=== PATIENT | male | born 1970 | race Two or more races ===

== ENCOUNTER 2019-06-17 14:17 | Emergency (ER) | payer MEDICAID ==
--- NOTE | 2019-06-17 14:56 | EDM.PDOC ---
ED HPI GENERAL MEDICAL PROBLEM - General Chief Complaint: General Stated Complaint: TOOTH ACHE/FELL AND CUT WRIST Time Seen by Provider: 06/17/19 14:56 Source of Information: Reports: Patient, Old Records, RN, RN Notes Reviewed History Limitations: Reports: No Limitations - History of Present Illness INITIAL COMMENTS - FREE TEXT/NARRATIVE: Pt sent to ER from clinic with c/o left sided dental pain and right wrist pain. He reports having had two days history of left upper toothache with pain and swelling to the cheek. Tetanus vaccination is up to date. He also had a seizure two weeks ago and cut right wrist, which now has purulent drainage. He has history epileptic seizures but has not been on seizure medication for 8 to 10 years. He claims he has not had any seizures for the last 5 years until two weeks ago. Denies fever or chills. Duration: Day(s): (12-14), Constant, Getting Worse Location: Reports: Upper Extremity, Right, Other (Dental) Quality: Reports: Ache Severity: Severe Improves with: Reports: None Worsens with: Reports: Eating, Movement (of Rt wrist) Associated Symptoms: Reports: No Other Symptoms Treatments COUNSELING PSYCHOLOGIST: Reports: Acetaminophen Left Upper Oral/Mouth Pain Score (Numeric/FACES): 8 - Related Data Allergies Allergy/AdvReac Type Severity Reaction Status Date / Time latex Allergy Rash Verified 06/17/19 15:03 Home Meds: Home Meds Acetaminophen [Acetaminophen Extra Strength] 1,000 mg PO ASDIRECTED PRN [History] Past Medical History - Past Health History Medical/Surgical History: Denies Medical/Surgical History HEENT History: Reports: Cataract, Glaucoma, Impaired Vision, Other (See Below) ( Dental decay, missing teeth) Other HEENT History: GLAUCOMA RIGHT EYE; CATARACT LEFT EYE; WEARS NO CORRECTIVE LENS Cardiovascular History: Reports: None Respiratory History: Reports: None Gastrointestinal History: Reports: Other (See Below) Other Gastrointestinal History: RIGHT INGUINAL HERNIA Genitourinary History: Reports: None Musculoskeletal History: Reports: Back Pain, Chronic Neurological History: Reports: Seizure, Other (See Below) Other Neuro History: RIGHT LEG NUMBNESS AND TINGLING Psychiatric History: Reports: None Endocrine/Metabolic History: Reports: None Hematologic History: Reports: None Immunologic History: Reports: None Oncologic (Cancer) History: Reports: None Dermatologic History: Reports: None - Infectious Disease History Infectious Disease History: Reports: Chicken Pox - Past Surgical History Head Surgeries/Procedures: Reports: None Cardiovascular Surgical History: Reports: None Respiratory Surgical History: Reports: None GI Surgical History: Reports: Hernia Repair/Other Other GI Surgeries/Procedures: Rt. hernia repair with mess Male Surgical History: Reports: None Endocrine Surgical History: Reports: None Oncologic Surgical History: Reports: None Social & Family History - Family History HEENT: Reports: Impaired Vision, Other (See Below) Other HEENT Family History: FATHER HAD EYE SURGERY UNCERTAIN FOR WHAT CONDITION Cardiac: Reports: None Respiratory: Reports: None GI: Reports: Irritable Bowel Syndrome : Reports: None OBGYN: Reports: None Musculoskeletal: Reports: None Neurological: Reports: None Psychiatric: Reports: None Endocrine/Metabolic: Reports: Diabetes, type II - Tobacco Use Smoking Status *Q: Heavy Tobacco Smoker Tobacco Use Within Last Twelve Months: Cigarettes - Caffeine Use Caffeine Use: Reports: Coffee Other Caffeine Use: COFFEE AND OR SODA DAILY AVERAGE 1 CUP - Living Situation & Occupation Living situation: Reports: with Family ED ROS GENERAL - Review of Systems Review Of Systems: Comprehensive ROS is negative, except as noted in HPI. ED EXAM, GENERAL - Physical Exam Exam: See Below Exam Limited By: No Limitations General Appearance: Alert, No Apparent Distress Ears: Normal External Exam, Hearing Grossly Normal Nose: Normal Inspection, Normal Mucosa, No Blood Throat/Mouth: Normal Lips, Normal Oropharynx, Normal Voice, No Airway Compromise , Other (Extensive chronic dental decay, several missing teeth. Rt maxillary molar w/deep caries and swelling/tenderness of adj. gums, and left face swelling ) Head: Atraumatic, Facial Swelling (Left), Facial Tenderness (Left) Neck: Normal Inspection, Supple, Non-Tender, Full Range of Motion. No: Lymphadenopathy (L), Lymphadenopathy (R) Respiratory/Chest: No Respiratory Distress, Lungs Clear, Normal Breath Sounds, No Accessory Muscle Use, Chest Non-Tender Cardiovascular: Regular Rate, Rhythm Extremities: Normal Capillary Refill, Other (Right volar wrist with an infected abrasion or laceration with localized erythema, and soft tissue swelling with small amount of purulent drainage.) Neurological: Alert, Oriented, CN II-XII Intact, Normal Cognition, Normal Gait, No Motor/Sensory Deficits Psychiatric: Normal Mood Skin Exam: Warm, Dry Course - Vital Signs Last Recorded V/S: Last Vital Signs Temp 98.6 F 02/07/20 14:55 Pulse 96 06/17/19 14:55 Resp 16 06/17/19 14:55 BP 128/96 H 06/17/19 14:55 Pulse Ox 98 06/17/19 14:55 - Orders/Labs/Meds Orders: Active Orders 24 hr Category Date Time Status Peripheral IV Care [RC] . DIRECTED Care 06/17/19 15:01 Active Sodium Chloride 0.9% [Saline Flush] Med 06/17/19 15:01 Active 10 ml FLUSH ASDIRECTED PRN Peripheral IV Insertion Adult [OM.PC] Stat Oth 06/17/19 15:00 Ordered Medication Orders Sodium Chloride (Saline Flush) 10 ml FLUSH ASDIRECTED PRN PRN Reason: Keep Vein Open Last Admin: 06/17/19 15:17 Dose: 10 ml Labs: Laboratory Tests 06/17/19 06/17/19 06/17/19 Range/Units 15:10 15:10 15:10 WBC 12.5 H (5.0-10.0) 10^3/uL RBC 4.67 (4.6-6.2) 10^6/uL Hgb 14.1 (14.0-18.0) g/dL Hct 42.0 (40.0-54.0) % MCV 89.9 (80-100) fL MCH 30.2 (27.0-34.0) pg MCHC 33.6 (33.0-35.0) g/dL Plt Count 320 (150-450) 10^3/uL Neut % (Auto) 69.0 (42.2-75.2) % Lymph % (Auto) 20.0 L (20.5-50.1) % Hardy % (Auto) 8.2 H (2-8) % Eos % (Auto) 2.5 (1.0-3.0) % Baso % (Auto) 0.3 (0.0-1.0) % Sodium 135 (135-145) mmol/L Potassium 4.0 (3.6-5.0) mmol/L Chloride 106 (101-111) mmol/L Carbon Dioxide 22.0 (21.0-31.0) mmol/L Anion Gap 11.0 BUN 12 (7-18) mg/dL Creatinine 1.0 (0.6-1.3) mg/dL Est Cr Clr Drug Dosing 101.31 mL/min Estimated GFR (MDRD) > 60 BUN/Creatinine Ratio 12.00 Glucose 97 (74-105) mg/dL Calcium 8.9 (8.4-10.2) mg/dl Total Bilirubin 0.7 (0.2-1.0) mg/dL AST 20 (10-42) IU/L ALT 20 (10-60) IU/L Alkaline Phosphatase 68 (42-121) IU/L C-Reactive Protein 2.0 H (0.0-1.3) mg/dL Total Protein 7.3 (6.7-8.2) g/dl Albumin 3.8 (3.2-5.5) g/dl Globulin 3.5 Albumin/Globulin Ratio 1.09 Meds: Medications Generic Name Dose Route Start Last Admin Trade Name Freq PRN Reason Stop Dose Admin Sodium Chloride 10 ml 06/17/19 15:01 06/17/19 15:17 Saline Flush FLUSH 10 ml ASDIRECTED PRN Administration Keep Vein Open Discontinued Medications Generic Name Dose Route Start Last Admin Trade Name Freq PRN Reason Stop Dose Admin Clindamycin Phosphate 900 mg/ 106 mls @ 200 mls/hr 06/17/19 15:02 06/17/19 15 :17 Sodium Chloride IV 06/17/19 15:33 200 mls/hr ONETIME ONE Administration Ketorolac Tromethamine 30 mg 06/17/19 15:01 06/17/19 15:17 Toradol IVPUSH 06/17/19 15:02 30 mg ONETIME ONE Administration Lidocaine HCl 15 ml 06/17/19 15:03 06/17/19 15:18 Xylocaine 2% Viscous PO 06/17/19 15:04 15 ml ONETIME ONE Administration - Radiology Interpretation Free Text/Narrative:: [facility] - [facility] Final Radiology Report Call: [phone] assistance Online chat: [email or web address] Name: DAILY ENCARNACION Age: 48Years M Date: 06/17/2019 SSN: -- : [id number] Study: XR WRIST COMPLETE MIN OF 3 VIEWS RIGHT Requesting Physician: HEATH TUBBS Images: 3 Addl Studies: Provided Clinical History: drake wrist pain, injury Contrast: Contrast Medium: Contrast Amount: Contrast Method: CONFIDENTIALITY STATEMENT This report is intended only for use by the referring physician, and only in accordance with law. If you received this in error, call [phone]. Page 1 of 1 PROCEDURE INFORMATION: Exam: XR Right Wrist Exam date and time: 06/17/2019 3:26 PM Age: 48 years old Clinical indication: Pain; Wrist; Right; Additional info: Marquez wrist pain, injury TECHNIQUE: Imaging protocol: XR Right wrist. Views: 3 or more views. COMPARISON: No relevant prior studies available. FINDINGS: Bones/joints: There may be an old healed fracture of the proximal right 5th metacarpal. There is no evidence of acute fracture. The alignment of the joints is anatomic and the joint spaces are maintained. Soft tissues: No soft tissue swelling is identified. IMPRESSION: No acute abnormality. Thank you for allowing us to participate in the care of your patient. Dictated and Authenticated by: Kedar Coffey MD 06/17/2019 3:33 PM Central Time ([place] & [place]) Departure - Departure Time of Disposition: 16:16 Disposition: Home, Self-Care 01 Condition: Good Clinical Impression: Dental abscess, Infected laceration Laceration of right wrist Qualifiers: Encounter type: initial encounter Qualified Code(s): S61.511A - Laceration without foreign body of right wrist, initial encounter - Discharge Information *PRESCRIPTION DRUG MONITORING PROGRAM REVIEWED*: Not Applicable *COPY OF PRESCRIPTION DRUG MONITORING REPORT IN PATIENT STARR: Not Applicable Instructions: Dental Abscess, Wound Infection, [id number] Forms: ED Department Discharge Additional Instructions: Rx: Clindamycin 300mg Rx: Naprosyn 500mg Rx: Viscous Lidocaine 2% Rx: Bactroban Ointment 2% Follow up with dentist at first available appointment. Follow up with a primary doctor at [facility] next week for recheck and referral to neurologist for seizure evaluation. Sepsis Event Note - Focused Exam Vital Signs: Vital Signs Temp Pulse Resp BP Pulse Ox 06/17/19 14:55 98.6 F 96 16 128/96 H 98 Date Exam was Performed: 06/17/19 Time Exam was Performed: 16:15 - My Orders Last 24 Hours: My Active Orders 06/17/19 15:00 Peripheral IV Insertion Adult [OM.PC] Stat 06/17/19 15:01 Peripheral IV Care [RC] . DIRECTED Sodium Chloride 0.9% [Saline Flush] 10 ml FLUSH ASDIRECTED PRN - Assessment/Plan Last 24 Hours: My Active Orders 06/17/19 15:00 Peripheral IV Insertion Adult [OM.PC] Stat 06/17/19 15:01 Peripheral IV Care [RC] . DIRECTED Sodium Chloride 0.9% [Saline Flush] 10 ml FLUSH ASDIRECTED PRN
[2019-06-17] MEDS ORDERED: Sodium Chloride 0.9% 10 ML Syringe FLUSH PRN (15:01)
[2019-06-17] MEDS ORDERED: Ketorolac 30 MG/ML SDV IVPUSH ONE (15:01)
[2019-06-17] MEDS ORDERED: Clindamycin Phosphate 900 MG in Sodium Chloride 0.9% 100 ML IV ONE (15:02)
[2019-06-17 15:03] VITALS: BP 128/96; PULSE 96
[2019-06-17] MEDS ORDERED: Lidocaine 2% Viscous Solution 15 ML Cup PO ONE (15:03)
[2019-06-17 15:37] LABS: CHLORIDE,CL 106 mmol/L (101-111); SODIUM,NA 135 mmol/L (135-145)
== END 2019-06-17 16:25 | disposition home or self-care (01) ==
LOC: DL.ED 14:17
DX: S61.511A Laceration without foreign body of right wrist, initial encounter (principal); K04.7 Periapical abscess without sinus; F17.210 Nicotine dependence, cigarettes, uncomplicated; Z91.040 Latex allergy status; W26.9XXA Contact with unspecified sharp object(s), initial encounter
CPT/HCPCS: 36415; 73110; 80053; 85025; 86140; 96365; 96375; 99283; A9270; J1885; J3490; J7050

== ENCOUNTER 2019-06-25 12:27 | Emergency (ER) | payer MEDICAID ==
[2019-06-25 12:44] VITALS: BP 124/67; PULSE 92
--- NOTE | 2019-06-25 13:10 | CR ---
EXAMINATION: Fingers Thumb Lt FA SEX: Male AGE: 48 years CLINICAL HISTORY: 48-year-old male with swollen left thumb. No known trauma. (possible infection) INTERPRETATION: 1. Homogeneous normal bone mineral density. No foreign bodies or inflammatory periostitis. 2. Soft tissue swelling. 3. No sign of left thumb fracture or dislocation. CONCLUSION: Soft tissue swelling. Otherwise negative plain film exam left thumb.
[2019-06-25 13:43] LABS: CHLORIDE,CL 105 mmol/L (101-111); SODIUM,NA 136 mmol/L (135-145)
--- NOTE | 2019-06-25 14:18 | EDM.PDOC ---
Scribed by Anastasia Amaya 06/25/19 1418 for Clementina Bermudez NP ED HPI GENERAL MEDICAL PROBLEM - General Chief Complaint: Skin Complaint Stated Complaint: FELL INTO MIRROR/FINGER IS SWOLLEN Time Seen by Provider: 06/25/19 13:15 Source of Information: Reports: Patient, RN, RN Notes Reviewed History Limitations: Reports: No Limitations - History of Present Illness INITIAL COMMENTS - FREE TEXT/NARRATIVE: A 48-year-old gentleman who presents with left thumb pain. He reports falling on a mirror more than a week ago and had a laceration on his right wrist, which was treated in the clinic. HE states one week ago his left thumb started hurting and got swollen. He denies any further injuries or fall. He denies any fevers, chills, shortness of breath, chest pain, palpitations or dizziness at this time. Left swollen thumb is not draining. He has not tried anything for pain. Onset: Gradual Duration: Getting Worse Location: Reports: Upper Extremity, Left Quality: Reports: Ache Severity: Moderate Improves with: Reports: None Worsens with: Reports: None Associated Symptoms: Reports: No Other Symptoms - Related Data Allergies Allergy/AdvReac Type Severity Reaction Status Date / Time latex Allergy Rash Verified 06/17/19 15:03 Home Meds: Home Meds Acetaminophen [Acetaminophen Extra Strength] 1,000 mg PO ASDIRECTED PRN [History] Past Medical History - Past Health History Medical/Surgical History: Denies Medical/Surgical History HEENT History: Reports: Cataract, Glaucoma, Impaired Vision, Other (See Below) ( Dental decay, missing teeth) Other HEENT History: GLAUCOMA RIGHT EYE; CATARACT LEFT EYE; WEARS NO CORRECTIVE LENS Cardiovascular History: Reports: None Respiratory History: Reports: None Gastrointestinal History: Reports: Other (See Below) Other Gastrointestinal History: RIGHT INGUINAL HERNIA Genitourinary History: Reports: None Musculoskeletal History: Reports: Back Pain, Chronic Neurological History: Reports: Seizure, Other (See Below) Other Neuro History: RIGHT LEG NUMBNESS AND TINGLING Psychiatric History: Reports: None Endocrine/Metabolic History: Reports: None Hematologic History: Reports: None Immunologic History: Reports: None Oncologic (Cancer) History: Reports: None Dermatologic History: Reports: None - Infectious Disease History Infectious Disease History: Reports: Chicken Pox - Past Surgical History Head Surgeries/Procedures: Reports: None Cardiovascular Surgical History: Reports: None Respiratory Surgical History: Reports: None GI Surgical History: Reports: Hernia Repair/Other Other GI Surgeries/Procedures: Rt. hernia repair with mess Male Surgical History: Reports: None Endocrine Surgical History: Reports: None Oncologic Surgical History: Reports: None Social & Family History - Family History HEENT: Reports: Impaired Vision, Other (See Below) Other HEENT Family History: FATHER HAD EYE SURGERY UNCERTAIN FOR WHAT CONDITION Cardiac: Reports: None Respiratory: Reports: None GI: Reports: Irritable Bowel Syndrome : Reports: None OBGYN: Reports: None Musculoskeletal: Reports: None Neurological: Reports: None Psychiatric: Reports: None Endocrine/Metabolic: Reports: Diabetes, type II - Caffeine Use Caffeine Use: Reports: Coffee Other Caffeine Use: COFFEE AND OR SODA DAILY AVERAGE 1 CUP - Living Situation & Occupation Living situation: Reports: with Family ED ROS GENERAL - Review of Systems Review Of Systems: Comprehensive ROS is negative, except as noted in HPI. ED EXAM, SKIN/RASH Exam: See Below Exam Limited By: No Limitations General Appearance: Alert, WD/WN, No Apparent Distress Head: Atraumatic, Normocephalic Respiratory/Chest: No Respiratory Distress, Lungs Clear, Normal Breath Sounds, No Accessory Muscle Use, Chest Non-Tender Cardiovascular: Normal Peripheral Pulses, Regular Rate, Rhythm, No Edema, No Gallop, No JVD, No Murmur, No Rub Peripheral Pulses: 3+: Radial (L) Extremities: Normal Capillary Refill, Other (moderately swollen left thumb with mild erythema and tenderness to palpation. No drainage noted. ) Psychiatric: Normal Affect, Normal Mood Skin: Warm, Dry Location, Skin: Upper Extremity, Left Course - Vital Signs Last Recorded V/S: Last Vital Signs Temp 97.3 F 06/25/19 12:40 Pulse 92 06/25/19 12:40 Resp 16 06/25/19 12:40 BP 124/67 06/25/19 12:40 Pulse Ox 99 06/25/19 12:40 - Orders/Labs/Meds Orders: Active Orders 24 hr Category Date Time Status CULTURE BLOOD [BC] Stat Lab 06/25/19 13:12 Received Labs: Laboratory Tests 06/25/19 06/25/19 06/25/19 Range/Units 13:12 13:12 13:12 WBC 10.1 H (5.0-10.0) 10^3/uL RBC 4.78 (4.6-6.2) 10^6/uL Hgb 14.6 (14.0-18.0) g/dL Hct 42.4 (40.0-54.0) % MCV 88.7 (80-100) fL MCH 30.5 (27.0-34.0) pg MCHC 34.4 (33.0-35.0) g/dL Plt Count 372 (150-450) 10^3/uL Neut % (Auto) 73.2 (42.2-75.2) % Lymph % (Auto) 16.6 L (20.5-50.1) % Banner % (Auto) 7.3 (2-8) % Eos % (Auto) 2.3 (1.0-3.0) % Baso % (Auto) 0.6 (0.0-1.0) % Sodium 136 (135-145) mmol/L Potassium 4.0 (3.6-5.0) mmol/L Chloride 105 (101-111) mmol/L Carbon Dioxide 23.0 (21.0-31.0) mmol/L Anion Gap 12.0 BUN 16 (7-18) mg/dL Creatinine 0.9 (0.6-1.3) mg/dL Est Cr Clr Drug Dosing TNP Estimated GFR (MDRD) > 60 BUN/Creatinine Ratio 17.77 Glucose 100 (74-105) mg/dL Lactic Acid 1.3 (0.5-2.0) mmol/L Calcium 9.0 (8.4-10.2) mg/dl Total Bilirubin 0.3 (0.2-1.0) mg/dL AST 27 (10-42) IU/L ALT 24 (10-60) IU/L Alkaline Phosphatase 68 (42-121) IU/L Total Protein 7.6 (6.7-8.2) g/dl Albumin 3.9 (3.2-5.5) g/dl Globulin 3.7 Albumin/Globulin Ratio 1.05 - Radiology Interpretation Free Text/Narrative:: Left hand x-ray: Soft tissue swelling. Otherwise negative plain film exam left thumb. See rad report. - Re-Assessments/Exams Free Text/Narrative Re-Assessment/Exam: 06/25/19 14:15 Reviewed lab results with patient. RX for Clindamycin sent home with side effects discussed with patient. Elevate thumb when lying down. Follow up in PCP in clinic in 4 days. Departure - Departure Time of Disposition: 14:12 Disposition: Home, Self-Care 01 Condition: Fair Clinical Impression: Cellulitis of left thumb - Discharge Information Instructions: Cellulitis, Adult, [id number] Forms: ED Department Discharge Additional Instructions: RX: Clindamycin 450mg 3 times a day, administer as prescribed. Follow up with PCP in 3 days. Sepsis Event Note - Evaluation Sepsis Screening Result: No Definite Risk - Focused Exam Vital Signs: Vital Signs Temp Pulse Resp BP Pulse Ox 06/25/19 12:40 97.3 F 92 16 124/67 99 Date Exam was Performed: 06/25/19 Time Exam was Performed: 14:18 - My Orders Last 24 Hours: My Active Orders 06/25/19 13:12 CULTURE BLOOD [BC] Stat - Assessment/Plan Last 24 Hours: My Active Orders 06/25/19 13:12 CULTURE BLOOD [BC] Stat I have read and agree with the documentation that has been completed regarding this visit. By signing this record, I attest that the documentation was completed in my physical presence and is an accurate record of the encounter.
== END 2019-06-25 14:20 | disposition home or self-care (01) ==
LOC: DL.ED 12:27
DX: L03.012 Cellulitis of left finger (principal); Z91.040 Latex allergy status
CPT/HCPCS: 36415; 73140-FA; 80053; 83605; 85025; 87040; 99283-25

== ENCOUNTER 2019-06-26 21:15 | Emergency (ER) | payer MEDICAID ==
[2019-06-26] MEDS ORDERED: Ibuprofen 600 MG Tab PO ONE ×2 (21:16→23:11)
[2019-06-26 23:19] VITALS: BP 159/95; PULSE 80
[2019-06-26 23:46] LABS: CHLORIDE,CL 106 mmol/L (101-111); SODIUM,NA 136 mmol/L (135-145)
[2019-06-27] MEDS ORDERED: Lidocaine 1% 30 ML SDV INJECT ONE (00:15)
[2019-06-27] MEDS ORDERED: Bacitracin Oint 1 GM U/D Packet TOP ONE (00:41)
[2019-06-27] MEDS ORDERED: Acetaminophen/oxyCODONE 325-5 MG Tab PO ONE (00:41)
[2019-06-27] MEDS ORDERED: cefTRIAXone 1 GM, Lidocaine 1% 2.1 ML IM ONE ×2 (00:41)
[2019-06-27] MEDS ORDERED: Ibuprofen 600 MG Tab ONE (01:40)
--- NOTE | 2019-06-27 01:49 | EDM.PDOC ---
ED HPI GENERAL MEDICAL PROBLEM - General Chief Complaint: Skin Complaint Stated Complaint: AMB Time Seen by Provider: 06/26/19 23:15 Source of Information: Reports: Patient History Limitations: Reports: No Limitations - History of Present Illness INITIAL COMMENTS - FREE TEXT/NARRATIVE: ED via [facility] with c/o pain to left thumb radiating up arm. Patient seen for same yesterday. has not taken any tylenol or ibuprofen. 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 Initial injury one week ago, stated was painting and ladder fell against mirror, No fever or chills No wound or drainage to thumb Left Finger-Thumb Pain Score (Numeric/FACES): 10 - Related Data Allergies Allergy/AdvReac Type Severity Reaction Status Date / Time latex Allergy Rash Verified 06/26/19 23:22 Home Meds: Home Meds Acetaminophen [Acetaminophen Extra Strength] 1,000 mg PO ASDIRECTED PRN [History] Past Medical History - Past Health History Medical/Surgical History: Denies Medical/Surgical History HEENT History: Reports: Cataract, Glaucoma, Impaired Vision, Other (See Below) Other HEENT History: GLAUCOMA RIGHT EYE; CATARACT LEFT EYE; WEARS NO CORRECTIVE LENS Cardiovascular History: Reports: None Respiratory History: Reports: None Gastrointestinal History: Reports: Other (See Below) Other Gastrointestinal History: RIGHT INGUINAL HERNIA Genitourinary History: Reports: None Musculoskeletal History: Reports: Back Pain, Chronic Neurological History: Reports: Seizure, Other (See Below) Other Neuro History: RIGHT LEG NUMBNESS AND TINGLING Psychiatric History: Reports: None Endocrine/Metabolic History: Reports: None Hematologic History: Reports: None Immunologic History: Reports: None Oncologic (Cancer) History: Reports: None Dermatologic History: Reports: None - Infectious Disease History Infectious Disease History: Reports: Chicken Pox - Past Surgical History Head Surgeries/Procedures: Reports: None Cardiovascular Surgical History: Reports: None Respiratory Surgical History: Reports: None GI Surgical History: Reports: Hernia Repair/Other Other GI Surgeries/Procedures: Rt. hernia repair with mess Male Surgical History: Reports: None Endocrine Surgical History: Reports: None Oncologic Surgical History: Reports: None Social & Family History - Family History HEENT: Reports: Impaired Vision, Other (See Below) Other HEENT Family History: FATHER HAD EYE SURGERY UNCERTAIN FOR WHAT CONDITION Cardiac: Reports: None Respiratory: Reports: None GI: Reports: Irritable Bowel Syndrome : Reports: None OBGYN: Reports: None Musculoskeletal: Reports: None Neurological: Reports: None Psychiatric: Reports: None Endocrine/Metabolic: Reports: Diabetes, type II - Tobacco Use Smoking Status *Q: Current Every Day Smoker Years of Tobacco use: 32 Packs/Tins Daily: 0.2 - Caffeine Use Caffeine Use: Reports: Energy Drinks Other Caffeine Use: COFFEE AND OR SODA DAILY AVERAGE 1 CUP - Recreational Drug Use Recreational Drug Use: No - Living Situation & Occupation Living situation: Reports: with Family ED ROS GENERAL - Review of Systems Review Of Systems: Comprehensive ROS is negative, except as noted in HPI. ED EXAM, SKIN/RASH Exam: See Below General Appearance: Alert, Moderate Distress, Thin Eye Exam: Bilateral Eye: EOMI Ears: Normal External Exam, Hearing Grossly Normal Nose: Normal Inspection Throat/Mouth: Normal Inspection Head: Atraumatic, Normocephalic Neck: Normal Inspection, Full Range of Motion Respiratory/Chest: No Respiratory Distress, Lungs Clear, Normal Breath Sounds Cardiovascular: Normal Peripheral Pulses, Regular Rate, Rhythm Back Exam: Full Range of Motion Extremities: Joint Swelling (left distal thumb) Neurological: Alert, Oriented, Normal Cognition Psychiatric: Anxious Skin: Warm, Dry, Intact, Erythema Location, Skin: Upper Extremity, Left (thumb dip to tip swollen erythema, no definite increased warmth to area, fulll ROM. Well calloused pad no definite blister formation, Punctate rough loose 1mm flap mid pad. ) ED SKIN PROCEDURES - I&D Skin Prep: Chlorhexidine (Hibiciens), Providone-Iodine (Betadine) Local Anesthesia: Lidocaine: 1% Plain Local Anesthetic Volume: 1cc Area Incised With: 11 Blade Drainage: No Drainage Sterile Dressinx4(s) (bacitracin) Complications: No Progress/Comments: poor toleration. Uncooperative with procedure. Course - Vital Signs Last Recorded V/S: Last Vital Signs Temp 97.8 F 06/26/19 23:12 Pulse 80 06/26/19 23:12 Resp 16 06/26/19 23:12 BP 159/95 H 06/26/19 23:12 Pulse Ox 98 06/26/19 23:12 - Orders/Labs/Meds Orders: Active Orders 24 hr Category Date Time Status CULTURE WOUND [RM] Stat Lab 06/27/19 01:41 Received Labs: Laboratory Tests 06/26/19 06/26/19 Range/Units 23:21 23:21 WBC 15.7 H (5.0-10.0) 10^3/uL RBC 4.48 L (4.6-6.2) 10^6/uL Hgb 13.8 L (14.0-18.0) g/dL Hct 40.1 (40.0-54.0) % MCV 89.5 (80-100) fL MCH 30.8 (27.0-34.0) pg MCHC 34.4 (33.0-35.0) g/dL Plt Count 375 (150-450) 10^3/uL Neut % (Auto) 71.9 (42.2-75.2) % Lymph % (Auto) 17.3 L (20.5-50.1) % [place] % (Auto) 8.4 H (2-8) % Eos % (Auto) 2.1 (1.0-3.0) % Baso % (Auto) 0.3 (0.0-1.0) % Sodium 136 (135-145) mmol/L Potassium 4.0 (3.6-5.0) mmol/L Chloride 106 (101-111) mmol/L Carbon Dioxide 22.0 (21.0-31.0) mmol/L Anion Gap 12.0 BUN 28 H (7-18) mg/dL Creatinine 0.9 (0.6-1.3) mg/dL Est Cr Clr Drug Dosing 111.33 mL/min Estimated GFR (MDRD) > 60 BUN/Creatinine Ratio 31.11 Glucose 106 H (74-105) mg/dL Calcium 8.9 (8.4-10.2) mg/dl Total Bilirubin 0.4 (0.2-1.0) mg/dL AST 19 (10-42) IU/L ALT 21 (10-60) IU/L Alkaline Phosphatase 63 (42-121) IU/L Total Protein 7.2 (6.7-8.2) g/dl Albumin 3.7 (3.2-5.5) g/dl Globulin 3.5 Albumin/Globulin Ratio 1.06 Meds: Medications Discontinued Medications Generic Name Dose Route Start Last Admin Trade Name Freq PRN Reason Stop Dose Admin Bacitracin 1 dose 06/27/19 00:41 06/27/19 00:47 Bacitracin Oint 1 Gm TOP 06/27/19 00:42 1 dose ONETIME ONE Administration Ceftriaxone Sodium 1 gm/ 0 gm 06/27/19 00:41 06/27/19 00:48 Lidocaine HCl 2.1 ml IM 06/27/19 00:42 1 inj ONETIME ONE Administration Ibuprofen 600 mg 06/26/19 23:11 06/26/19 23:26 Motrin PO 06/26/19 23:12 600 mg ONETIME ONE Administration Ibuprofen Confirm 06/27/19 01:40 Motrin Administered 06/27/19 01:41 Dose 1,200 mg .ROUTE .STK-MED ONE Lidocaine HCl 30 ml 06/27/19 00:15 06/27/19 00:49 Xylocaine-Mpf 1% INJECT 06/27/19 00:16 30 ml ONETIME ONE Administration Oxycodone/Acetaminophen 1 tab 06/27/19 00:41 06/27/19 00:47 Percocet 325-5 Mg PO 06/27/19 00:42 1 tab ONETIME ONE Administration - Radiology Interpretation Free Text/Narrative:: xray right thumb, No FB visualized, No sign of oseteomylitis reported, See report - Re-Assessments/Exams Free Text/Narrative Re-Assessment/Exam: 06/27/19 05:45 Instructed patient to soak thumb, continue antibiotic, follow uwith primary care in am. Use tylenol and ibuprofen for pain control. Departure - Departure Time of Disposition: 01:45 Disposition: Home, Self-Care 01 Condition: Good Clinical Impression: Infected superficial injury of thumb - Discharge Information Instructions: Fingertip Infection Referrals: PCP,None [Primary Care Provider] - Forms: ED Department Discharge Additional Instructions: soak thumb warm soapy water three times daily alternate tylenol 650mg and ibuprofen 600mg every 4 hours as needed for discomfort clinic follow up in am continue clindamycin elevate extremity Sepsis Event Note - Evaluation Sepsis Screening Result: No Definite Risk - Focused Exam Vital Signs: Vital Signs Temp Pulse Resp BP Pulse Ox 06/26/19 23:12 97.8 F 80 16 159/95 H 98 Date Exam was Performed: 06/27/19 Time Exam was Performed: 05:47 - My Orders Last 24 Hours: My Active Orders 06/27/19 01:41 CULTURE WOUND [RM] Stat - Assessment/Plan Last 24 Hours: My Active Orders 06/27/19 01:41 CULTURE WOUND [RM] Stat
== END 2019-06-27 01:44 | disposition home or self-care (01) ==
LOC: DL.ED 21:15
DX: S60.932A Unspecified superficial injury of left thumb, initial encounter (principal); L02.512 Cutaneous abscess of left hand; Z91.040 Latex allergy status; F17.210 Nicotine dependence, cigarettes, uncomplicated; W20.8XXA Other cause of strike by thrown, projected or falling object, initial encounter
CPT/HCPCS: 10060; 36415; 73140; 80053; 85025; 87070; 96372; 99284; A9270; J0696; J2001

== ENCOUNTER 2019-06-29 16:53 | Emergency (ER) | payer MEDICAID ==
[2019-06-29 17:08] VITALS: BP 122/86; PULSE 100
--- NOTE | 2019-06-29 17:17 | EDM.PDOC ---
<Corona Orona - Last Filed: 06/29/19 17:31> ED HPI GENERAL MEDICAL PROBLEM - General Chief Complaint: Upper Extremity Injury/Pain Stated Complaint: CLINIC REF OVER TO DRAIN THUMB Time Seen by Provider: 06/29/19 17:10 Source of Information: Reports: Patient, RN, RN Notes Reviewed History Limitations: Reports: No Limitations - History of Present Illness INITIAL COMMENTS - FREE TEXT/NARRATIVE: Patient states was painting on a ladder and the ladder fell into a mirror and cut his right wrist and left thumb and got glass into his left thumb 5 days ago. He was in on the Jun 26 and got an X-ray the other day did not indicate any foreign object in wrist or thumb. Left thumb is swollen and red and extremely painful to the touch. He cannot bend his thumb due to the swelling. Started on clindamycin and has been taking it as prescribed. He was at the clinic today and they sent him to the ER because he stated they did not have the proper materials to perform the I&D on his thumb. Patient is in mild distress but denies headache, fever/chills. Duration: Getting Worse Location: Reports: Upper Extremity, Left Quality: Reports: Ache, Throbbing Severity: Mild Improves with: Reports: None Worsens with: Reports: None Associated Symptoms: Reports: No Other Symptoms Left Finger-Thumb Pain Score (Numeric/FACES): 8 - Related Data Allergies Allergy/AdvReac Type Severity Reaction Status Date / Time latex Allergy Rash Verified 06/29/19 16:59 Home Meds: Home Meds Acetaminophen [Acetaminophen Extra Strength] 1,000 mg PO ASDIRECTED PRN [History] Clindamycin HCl 150 mg PO TID 06/29/19 [History] Past Medical History - Past Health History Medical/Surgical History: Denies Medical/Surgical History HEENT History: Reports: Cataract, Glaucoma, Impaired Vision, Other (See Below) Other HEENT History: GLAUCOMA RIGHT EYE; CATARACT LEFT EYE; WEARS NO CORRECTIVE LENS Cardiovascular History: Reports: None Respiratory History: Reports: None Gastrointestinal History: Reports: Other (See Below) Other Gastrointestinal History: RIGHT INGUINAL HERNIA Genitourinary History: Reports: None Musculoskeletal History: Reports: Back Pain, Chronic Neurological History: Reports: Seizure, Other (See Below) Other Neuro History: RIGHT LEG NUMBNESS AND TINGLING Psychiatric History: Reports: None Endocrine/Metabolic History: Reports: None Hematologic History: Reports: None Immunologic History: Reports: None Oncologic (Cancer) History: Reports: None Dermatologic History: Reports: None - Infectious Disease History Infectious Disease History: Reports: Chicken Pox - Past Surgical History Head Surgeries/Procedures: Reports: None Cardiovascular Surgical History: Reports: None Respiratory Surgical History: Reports: None GI Surgical History: Reports: Hernia Repair/Other Other GI Surgeries/Procedures: Rt. hernia repair with mess Male Surgical History: Reports: None Endocrine Surgical History: Reports: None Oncologic Surgical History: Reports: None Social & Family History - Family History HEENT: Reports: Impaired Vision, Other (See Below) Other HEENT Family History: FATHER HAD EYE SURGERY UNCERTAIN FOR WHAT CONDITION Cardiac: Reports: None Respiratory: Reports: None GI: Reports: Irritable Bowel Syndrome : Reports: None OBGYN: Reports: None Musculoskeletal: Reports: None Neurological: Reports: None Psychiatric: Reports: None Endocrine/Metabolic: Reports: Diabetes, type II - Caffeine Use Caffeine Use: Reports: Energy Drinks Other Caffeine Use: COFFEE AND OR SODA DAILY AVERAGE 1 CUP - Living Situation & Occupation Living situation: Reports: with Family Review of Systems - Review of Systems Review Of Systems: Comprehensive ROS is negative, except as noted in HPI. ED EXAM, GENERAL - Physical Exam Exam: See Below Exam Limited By: No Limitations General Appearance: Alert, WD/WN, Mild Distress Respiratory/Chest: No Respiratory Distress, Lungs Clear, Normal Breath Sounds, No Accessory Muscle Use, Chest Non-Tender Cardiovascular: Normal Peripheral Pulses, Regular Rate, Rhythm, No Edema, No Gallop, No JVD, No Murmur, No Rub Extremities: Normal Inspection, Normal Range of Motion, Non-Tender, Normal Capillary Refill, No Pedal Edema Skin Exam: Warm, Intact, Erythema (left thumb), Increased Warmth (left thumb), Other (left thumb is extremely swollen with increased warmth and erythema.) Course - Vital Signs Last Recorded V/S: Last Vital Signs Temp 36.4 C 06/29/19 17:04 Pulse 100 06/29/19 17:04 Resp 16 06/29/19 17:04 BP 122/86 06/29/19 17:04 Pulse Ox 100 06/29/19 17:04 - Orders/Labs/Meds Orders: Active Orders 24 hr Category Date Time Status CBC WITH AUTO DIFF [HEME] Urgent Lab 06/29/19 17:28 Ordered COMPREHENSIVE METABOLIC PN,CMP [CHEM] Urgent Lab 06/29/19 17:28 Ordered CULTURE BLOOD [BC] Stat Lab 06/29/19 17:28 Ordered CULTURE BLOOD [BC] Stat Lab 06/29/19 17:28 Ordered LACTIC ACID [CHEM] Stat Lab 06/29/19 17:28 Ordered Piperacillin/Tazobactam [Zosyn] 3.375 gm Med 06/29/19 17:50 Ordered Sodium Chloride 0.9% [Normal Saline] 100 ml IV ONETIME Blood Culture x2 Reflex Set [OM.PC] Stat Oth 06/29/19 17:28 Ordered Medication Orders Piperacillin Sod/Tazobactam (Sod 3.375 gm/ Sodium Chloride) 100 mls @ 200 mls/ hr IV ONETIME ONE Stop: 06/29/19 18:19 Meds: Medications Generic Name Dose Route Start Last Admin Trade Name Freq PRN Reason Stop Dose Admin Piperacillin Sod/Tazobactam 100 mls @ 200 mls/hr 06/29/19 17:50 Sod 3.375 gm/ Sodium Chloride IV 06/29/19 18:19 ONETIME ONE Departure - Departure Disposition: DC/Tfer to [facility] 02 Clinical Impression: Injury of thumb, left, superficial, infected Qualifiers: Encounter type: subsequent encounter Qualified Code(s): S60.932D - Unspecified superficial injury of left thumb, subsequent encounter; L08.9 - Local infection of the skin and subcutaneous tissue, unspecified - Discharge Information Forms: Interfacility Transfer EMTALA Care Plan Goals: Discussed the examination results with Dr. Lee ([facility]). Dr. Lee accepted the patient for continued evaluation and further management. IV Zosyn was started prior to transport. The patient will be transported by [facility]. Sepsis Event Note - Evaluation Sepsis Screening Result: No Definite Risk - Focused Exam Vital Signs: Vital Signs Temp Pulse Resp BP Pulse Ox 06/29/19 17:04 36.4 C 100 16 122/86 100 Date Exam was Performed: 06/29/19 Time Exam was Performed: 17:31 - My Orders Last 24 Hours: My Active Orders 06/29/19 17:28 CBC WITH AUTO DIFF [HEME] Urgent COMPREHENSIVE METABOLIC PN,CMP [CHEM] Urgent CULTURE BLOOD [BC] Stat CULTURE BLOOD [BC] Stat LACTIC ACID [CHEM] Stat Blood Culture x2 Reflex Set [OM.PC] Stat 06/29/19 17:50 Piperacillin/Tazobactam [Zosyn] 3.375 gm Sodium Chloride 0.9% [Normal Saline] 100 ml IV ONETIME - Assessment/Plan Last 24 Hours: My Active Orders 06/29/19 17:28 CBC WITH AUTO DIFF [HEME] Urgent COMPREHENSIVE METABOLIC PN,CMP [CHEM] Urgent CULTURE BLOOD [BC] Stat CULTURE BLOOD [BC] Stat LACTIC ACID [CHEM] Stat Blood Culture x2 Reflex Set [OM.PC] Stat 06/29/19 17:50 Piperacillin/Tazobactam [Zosyn] 3.375 gm Sodium Chloride 0.9% [Normal Saline] 100 ml IV ONETIME <Santos Shepard M - Last Filed: 06/29/19 18:04> Course - Re-Assessments/Exams Free Text/Narrative Re-Assessment/Exam: 06/29/19 18:[address] Barrera (orthopedics) was completed during the visit. Dr. Barrera advised to have the patient transferred to [facility] in [place] initially for IV antibiotics with a possible need for a surgical consult after the swelling is reduced. Departure - Departure Time of Disposition: 17:58 Condition: Fair - Discharge Information *PRESCRIPTION DRUG MONITORING PROGRAM REVIEWED*: Not Applicable *COPY OF PRESCRIPTION DRUG MONITORING REPORT IN PATIENT STARR: Not Applicable Sepsis Event Note - Focused Exam Date Exam was Performed: 06/29/19 Time Exam was Performed: 17:58
[2019-06-29] MEDS ORDERED: Piperacillin/Tazobactam 3.375 GM in Sodium Chloride 0.9% 100 ML IV ONE (17:50)
[2019-06-29 18:14] LABS: ANION GAP 12.7; CHLORIDE,CL 103 mmol/L (101-111); SODIUM,NA 134 mmol/L (135-145)
[2019-06-29] MEDS ORDERED: Ketorolac 30 MG/ML SDV IVPUSH ONE (18:27)
== END 2019-06-29 18:39 ==
LOC: DL.ED 16:53
DX: S61.012A Laceration without foreign body of left thumb without damage to nail, initial encounter (principal); L08.9 Local infection of the skin and subcutaneous tissue, unspecified; Z91.040 Latex allergy status; W25.XXXA Contact with sharp glass, initial encounter; Y93.89 Activity, other specified
CPT/HCPCS: 36415; 80053; 83605; 85025; 87040; 96365; 96375; 99284; J1885; J2543; J7050